=== PATIENT | female | born 1990 | race Two or more races ===

== ENCOUNTER 2020-03-16 08:50 | Outpatient (CLI) | payer OTHER | END 2020-03-16 09:11 | disposition home or self-care (01) | LOC: RX STUDY 08:50 | PROVIDERS: ATTEND Specialist | DX: N97.0 Female infertility associated with anovulation (principal); N39.8 Other specified disorders of urinary system ==

== ENCOUNTER 2024-10-05 22:58 | Emergency (ER) | payer OTHER ==
[~2024-10-05] VITALS: Ht 157.5 cm; Wt 85.3 kg
[2024-10-05] MEDS ORDERED: PROMETRIUM200 MG PO (23:11)
[2024-10-05] MEDS ORDERED: PRENATA CHEWAB1 EACH PO (23:11)
[2024-10-06] MEDS ORDERED: ACETAMINOPHEN 500 MG GEL..CAP PO STA (00:17)
[2024-10-06] MEDS ORDERED: ACETAMINOPHEN 500 MG GEL..CAP PO ONE (00:24)
[2024-10-06 00:45] LABS: HEMATOCRIT 37.6 % (36.0-45.00); HEMOGLOBIN 12.3 g/dL (12.0-15.00); MEAN CELL VOLUME 85.8 fL (80.00-100.00); MEAN CORPUSCULAR HEMOGLOBIN 28.1 pg (27.00-32.0); MEAN CORPUSCULAR HGB CONC 32.8 g/dl (32.0-36.0); PLATELET COUNT 267 K/uL (150-450); RED BLOOD COUNT 4.39 M/uL (4.00-6.00); RED CELL DISTRIBUTION WIDTH 14.7 % (11.5-14.5)
[2024-10-06 01:00] LABS: INR 1.05; PARTIAL THROMBOPLASTIN TIME 27.1 SECONDS (22.0-34.0); PROTHROMBIN TIME 11.4 SECONDS (9.0-11.5)
[2024-10-06 01:09] LABS: CREATININE SERUM 0.71 mg/dL (0.55-1.02); GFR 93.68; POTASSIUM 4.64 mEq/L (3.5-5.1)
[2024-10-06 01:42] LABS: PH,URINE 5.5 (5.0-8.0); URINE APPEARANCE Cloudy; URINE BILIRRUBIN Negative (NEGATIVE); URINE BLOOD Large; URINE COLOR Red; URINE GLUCOSE Negative (NEGATIVE); URINE KETONE Negative (NEGATIVE); URINE LEUKOCYTE Small; URINE NITRATE Negative; URINE UROBILINOGEN 0.2 E.U./dl
[2024-10-06 01:46] LABS: URINE BACTERIA 1313.3 uL (0.0-1933); URINE EPITHELIAL CELLS 56.1 uL (0.0-38.8); URINE WBC 49.5 uL (0.0-23.2)
[2024-10-06 02:20] LABS: URINE PROTEIN 100 (NEGATIVE); URINE RBC > 10558.9 uL (0.0-20.8)
[2024-10-06] MEDS ORDERED: CEFTRIAXONE SODIUM 1,000 MG VIAL IM STA ×2 (04:57→05:02)
[2024-10-06] MEDS ORDERED: LIDOCAINE HCL 1% 10ML VIAL ONE (05:04)
[2024-10-06] MEDS ORDERED: CEFTRIAXONE SODIUM 1,000 MG VIAL ONE (05:04)
[2024-10-06] MEDS ORDERED: CEPHALEXIN500 MG PO (05:09)
== END 2024-10-06 05:49 ==
LOC: ER 22:59
PROVIDERS: General Practice
DX: O20.8 Other hemorrhage in early pregnancy (principal); Z3A.01 Less than 8 weeks gestation of pregnancy; R10.2 Pelvic and perineal pain; R31.9 Hematuria, unspecified; R10.9 Unspecified abdominal pain; Z88.6 Allergy status to analgesic agent

== ENCOUNTER 2024-11-10 13:30 | Outpatient (CLI) | payer OTHER ==
[~2024-11-10 13:30] MED LIST: CEPHALEXIN500 MG PO; PRENATA CHEWAB1 EACH PO; PROMETRIUM200 MG PO
== END 2024-11-10 13:36 | disposition home or self-care (01) ==
LOC: SONOGRAMA 13:30
PROVIDERS: ATTEND Obstetrics & Gynecology
DX: N91.1 Secondary amenorrhea (principal); R10.2 Pelvic and perineal pain